=== PATIENT | female | born 1985 ===

== ENCOUNTER 2019-07-20 02:27 | Emergency (ER) | payer BC ==
[2019-07-20] MEDS ORDERED: Ondansetron PF 4 MG/2 ML Vial ONE (02:37)
[2019-07-20 03:30] LABS: #Basophils 0.1 thou/uL (0.0-0.2); #Lymphocytes 1.9 thou/uL (1.20-3.40); #Monocytes 0.7 thou/uL (0.11-0.59); %Basophils 0.7 % (0.0-1.0); %Eosinophils 0.3 % (0.0-10.0); %Monocytes 6.4 % (0.0-10.0); %Neutrophils 74.6 % (42.0-75.0); Hemoglobin 12.3 g/dL (12.0-16.0); Mean Corpuscular HGB CONC 35.6 g/dL (32.0-36.0); Mean Corpuscular Hemoglobin 31.8 pg (27.0-31.0); Mean Corpuscular Volume 89.3 fL (78.0-98.0); Mean Platelet Volume 7.6 fL (7.4-10.4); Platelet Count 352 thou/uL (130-400); RBC Distribution Width 10.9 % (11.5-14.5); Red Blood Cell (RBC) Count 3.88 mill/uL (4.20-5.40); White Blood Cell (WBC) Count 10.7 thou/uL (4.8-10.8)
[2019-07-20 03:33] LABS: BHCG - Serum Negative (NEGATIVE); Pregs Control Bar Appear? YES (CONTROL BAR)
[2019-07-20 03:34] LABS: Pregs Control Background? CLEAR/WHITE (CLR/WHITE)
[2019-07-20] MEDS ORDERED: Promethazine HCl 25 MG/ML VIAL ONE (03:38)
[2019-07-20] MEDS ORDERED: Ketorolac Tromethamine 30 MG/ML VIAL ONE (03:38)
[2019-07-20 03:39] LABS: ALT (SGPT) 8 U/L (8-55); AST (SGOT) 14 U/L (5-34); Albumin 4.4 g/dL (3.5-5.0); Alkaline Phosphatase 76 U/L (40-110); Anion Gap 19 mmol/L (10-20); BUN (Urea Nitrogen) 11 mg/dL (7.0-18.7); Bilirubin, Total 0.3 mg/dL (0.2-1.2); Calc. Creatinine Clearance 0 mL/min (70-130); Calcium 9.3 mg/dL (7.8-10.44); Carbon Dioxide 18 mmol/L (22-29); Chloride 107 mmol/L (98-107); Estimated GFR-MDRD 83; Globulin 3.1 g/dL (2.4-3.5); Glucose 96 mg/dL (70-105); Lipase 16 U/L (8-78); Potassium 3.2 mmol/L (3.5-5.1); Protein, Total 7.5 g/dL (6.0-8.3); Sodium 141 mmol/L (136-145)
[2019-07-20 04:13] LABS: Blood, Urine Large (Negative); Clarity Cloudy (Clear); Glucose, Urine (Dipstick) Negative (Negative); Leukocyte Negative (Negative); Nitrite Negative (Negative); Protein, Urine (Dipstick) 100 mg/dL (Neg-Trace)
[2019-07-20 04:14] LABS: Bilirubin Unable to Interpret (Negative); Urobilinogen UNABLE TO INTERPRET mg/dL (Less than 2)
[2019-07-20 04:15] LABS: RBC/HPF Greater than 50 HPF (0-3)
[2019-07-20 04:16] LABS: Squamous Epithelial 0-3 HPF (0-3); WBC/HPF None Seen HPF (0-3)
[2019-07-20 04:17] LABS: Bacteria/HPF Rare-Few HPF (None Seen)
--- NOTE | 2019-07-20 09:28 | CT ---
PRELIMINARY REPORT/[facility]/EMERGENCY AFTER HOURS PROCEDURE: PROCEDURE INFORMATION: Exam: CT Abdomen And Pelvis Without Contrast Exam date and time: 07/20/2019 3:47 AM Clinical history: 33 years old, female; Pain and condition or disease; Kidney or ureter condition; Ca lculus (stone) in kidney and calculus (stone) in ureter and hydronephrosis; Abdominal pain; Patient H X: Right flank pain and hematuria. Hs of multiple stones TECHNIQUE: Imaging protocol: Computed tomography of the abdomen and pelvis without contrast. Radiation optimization: All CT scans at this facility use at least one of these dose optimization wade hniques: automated exposure control; mA and/or kV adjustment per patient size (includes targeted exam s where dose is matched to clinical indication); or iterative reconstruction. COMPARISON: No relevant prior studies available. FINDINGS: Liver: No acute findings. No mass. Gallbladder and bile ducts: No calcified stones. No ductal dilation. Pancreas: No acute findings. No ductal dilation. Spleen: No acute findings. No splenomegaly. Adrenals: No acute findings. No mass. Kidneys and ureters: 3 mm stone in the right proximal ureter with mild hydroureteronephrosis. Few oth er punctate nonobstructing right renal calculi. No left hydronephrosis. Stomach and bowel: No obstruction. Small hiatal hernia. Appendix: No evidence of appendicitis. Intraperitoneal space: No free air. No significant fluid collection. Vasculature: No abdominal aortic aneurysm. Lymph nodes: No significant adenopathy. Bladder: No stones. Reproductive: No acute findings. Bones/joints: No acute fracture. Soft tissues: No acute findings. IMPRESSION: Right proximal ureteral obstructing stone. Thank you for allowing us to participate in the care of your patient. Dictated and Authenticated by: Ulysses Ambriz MD 07/20/2019 4:30 AM Central Time ([place] & [place]) FINAL REPORT ABDOMEN CT WITHOUT CONTRAST PELVIC CT WITHOUT CONTRAST: Date: 07/20/19 HISTORY: Abdominal pain. Right flank pain and hematuria. FINDINGS: ABDOMEN CT: Grossly, no abnormal attenuation of the solid organs. Limited evaluation due to lack of IV contrast. There are enlarged mesenteric lymph nodes. Correlate for mesenteric lymphadenitis. Limited evaluation of the alimentary canal. No evidence of bowel obstruction. The ileocecal junction is unremarkable. Nonobstructing calculi in right intrarenal collecting system. There is an obstructing calculus in the proximal right ureter measuring 4.0 mm in the craniocaudal dimension. No evidence of left-sided obst ructive uropathy. CT PELVIS: Uterus and adnexal structures are grossly unremarkable. No calcification of the urinary bladder. Free fluid in the pelvis is noted. IMPRESSION: This report is in agreement with the preliminary report by [facility]. 1. Mild right-sided obstructive uropathy secondary to a solitary calculus in the proximal right uret er. 2. Enlarged mesenteric lymph nodes. Correlate for mesenteric lymphadenitis. POS: [facility]
== END 2019-07-20 04:52 | disposition home or self-care (01) ==
LOC: SCSER 02:27
DX: N13.2 Hydronephrosis with renal and ureteral calculous obstruction (principal); E87.6 Hypokalemia; F32.9 Major depressive disorder, single episode, unspecified; Z79.899 Other long term (current) drug therapy
CPT/HCPCS: 74176; 80053; 81003; 81015; 83690; 84703; 85025; 87086; 96361; 96374; 96375; J1885; J2270; J2405; J2550